=== PATIENT | female | born 1995 | race Caucasian/White ===

== ENCOUNTER 2020-10-28 06:53 | Outpatient (NON) | payer BC, SELFPAY ==
[2020-10-29 13:43] LABS: SARS-CoV-2 RNA PCR Negative
== END 2020-10-28 06:54 ==
PROVIDERS: PCP Pediatrics; Visit Provider Nurse Practitioner Family
DX: Z20.828 Contact with and (suspected) exposure to other viral communicable diseases (principal); R51.9 Headache, unspecified; J02.9 Acute pharyngitis, unspecified
CPT/HCPCS: 87635; C9803; U0003

== ENCOUNTER 2022-03-30 06:57 | Emergency (ER) | payer OTHER, SELFPAY ==
[2022-03-30 07:03] VITALS: BP 118/87; PULSE 123; RESP 18; TEMP 37.3; O2SAT 99
--- NOTE | 2022-03-30 07:20 | ED.NAVMDI ---
HPI - Nausea/Vomiting/Diarrhea General Chief complaint: Nausea/Vomiting/Diarrhea Stated complaint: 18wks preg, N/V/D, fever Time Seen by Provider: 03/30/22 07:13 Source: patient Mode of arrival: ambulatory Limitations: no limitations History of Present Illness HPI Narrative: Patient is a 26-year-old female complaining of I think I got food poisoning , describes symptoms as nausea, vomiting, diarrhea and subjective fever that started last night. Patient states she was at work ate something and when she got home she started to experience the above symptoms. Patient states that her has similar symptoms but just has diarrhea. Patient states that she is 18 weeks , has had care and ultrasound, denies any abdominal pain, vaginal bleeding or discharge. Related Data Allergies Allergy/AdvReac Type Severity Reaction Status Date / Time No Known Allergies Allergy Verified 03/30/22 07:14 Review of Systems Review of Systems: All systems reviewed & are unremarkable except as noted in HPI and below Constitutional: Constitutional: Denies body ache(s), Denies chills, Denies excessive sweating, Denies fatigue, Denies fever(s), Denies headache(s), Denies lethargy, Denies malaise, Denies weakness and Denies weight loss Eyes: Eyes: Denies blurry vision, Denies change in vision and Denies loss of vision ENT: Denies dizziness, Denies ear discharge, Denies headache(s), Denies lip swelling, Denies epistaxis, Denies nasal congestion, Denies neck pain, Denies throat swelling and Denies tongue swelling Cardiovascular: Cardiovascular: Denies chest pain, Denies chest pain at rest, Denies chest pain with activity, Denies diaphoresis, Denies rapid heart rate, Denies edema, Denies irregular heart rhythm, Denies lightheadedness, Denies palpitations, Denies dyspnea and Denies dyspnea on exertion Respiratory: Respiratory: Denies chest congestion, Denies cough, Denies hemoptysis, Denies dyspnea and Denies dyspnea on exertion Gastrointestinal: Gastrointestinal: Denies abdominal pain, Denies melena, Denies hematochezia and Denies hematemesis Musculoskeletal: Musculoskeletal: Denies abnormal gait, Denies deformity, Denies joint swelling, Denies limited range of motion, Denies neck pain and Denies numbness Neurologic: Denies Abnormal speech present, Denies abnormal gait, Denies confusion, Denies dizziness, Denies headache(s), Denies focal weakness, Denies loss of vision, Denies numbness, Denies Other visual disturbances, Denies Sensory deficit (Neuro) and Denies weakness Psychiatric: Psychiatric: Denies confusion, Denies depression, Denies auditory hallucinations, Denies homicidal ideation and Denies suicidal ideation Endocrine: Endocrine: Denies cold intolerance, Denies excessive sweating, Denies fatigue, Denies heat intolerance and Denies palpitations Hematologic/Lymphatic: Hematologic/Lymphatic: Denies easy bleeding and Denies easy bruising Allergic/Immunologic: Allergic/Immunologic: Denies lip swelling, Denies throat swelling and Denies tongue swelling PMFSH Past Medical History Medical History Asthma Encounter for IUD insertion 09/17/19 Mirena insertion 07/03/21 Mirena removal Headache Heartburn HSV-2 infection Nexplanon insertion 2014 Nexplanon removal 05/02/2018 Surgical History Surgical History Gastric bypass status for obesity 07/14/2019 Family History Family History Father Hypertension Heart disease Mother Heart disease pacemaker Grandparent Heart disease paternal grandfather Diabetes mellitus maternal grandmother Congestive heart failure maternal grandmother Lung tumor maternal grandfather Other Diabetes mellitus maternal aunt x2 Exam Const: General: cooperative, healthy appearing, comfortable,
[2022-03-30 07:26] LABS: Basophils Percent Auto 0.2 % (0.2-1.2); Eosinophils Absolute Auto 0.1 K/mm3 (0-0.3); Eosinophils Percent Auto 0.4 % (0-4.4); Hemoglobin 12.4 g/dL (12.0-15.0); Immature Granulocyte Absolute 0.07 K/mm3 (0.00-0.031); Immature Granulocyte Percent A 0.6 % (0-0.5); Lymphocytes Absolute Auto 0.64 K/mm3 (0.9-3.2); Lymphocytes Percent Auto 5.4 % (18.3-44.2); Mean Corpuscular HGB Conc 34.4 g/dl (32-36); Mean Corpuscular Hemoglobin 29.7 pg (26-34); Mean Corpuscular Volume 86.3 fl (80-100); Mean Platelet Volume 10.1 fl (7.4-10.4); Monocytes Absolute Auto 0.5 K/mm3 (0.1-0.6); Monocytes Percent Auto 4.4 % (2.6-8.5); Neutrophils Absolute Auto 10.7 K/mm3 (1.3-6.7); Platelet Count Result 246 k/mm3 (150-375); Red Blood Count 4.17 M/mm3 (4.2-5.4); Red Cell Distribution Width 11.9 % (11.5-14.5)
[2022-03-30] MEDS: SODIUM CHLORIDE 0.9% IV 1,000 ML 999 ML IV CONT (07:26)
[2022-03-30] MEDS: PROMETHAZINE HCL 25 MG/ML AMPUL 12.5 MG IV PUSH (07:26)
[2022-03-30 07:38] LABS: Alanine Aminotransferase 14 U/L (4-35); Albumin Level 3.8 g/dL (3.5-5.1); Alkaline Phosphatase 61 U/L (38-126); Anion Gap 8 mmol/L (8-16); Aspartate Amino Transferase 22 U/L (14-36); Bilirubin,Total 0.5 mg/dL (0.2-1.3); Blood Urea Nitrogen 8 mg/dL (7-17); Calcium 8.4 mg/dL (8.4-10.2); Carbon Dioxide 20 mmol/L (22-30); Chloride 105 mmol/L (98-107); Estimated CRCL calculation 162 ml/min; Estimated Glomerular Filt Rate > 60; Glucose 91 mg/dL (65-110); Lipase 95 U/L (23-300); Potassium 3.4 mmol/L (3.4-5.0); Sodium 133 mmol/L (137-145)
[2022-03-30 08:07] VITALS: BP 109/72; PULSE 88; RESP 14; O2SAT 100
[2022-03-30 09:42] VITALS: BP 109/59; PULSE 76; RESP 18; O2SAT 98
[2022-03-30 10:38] VITALS: BP 103/69; PULSE 71; RESP 18; O2SAT 98
[2022-03-30 11:30] VITALS: BP 107/74; PULSE 80; RESP 16; TEMP 36.8; O2SAT 99
== END 2022-03-30 11:33 | disposition home or self-care (01) ==
PROVIDERS: Emergency Provider Emergency Medicine
DX: O98.812 Other maternal infectious and parasitic diseases complicating pregnancy, second trimester (principal); A05.9 Bacterial foodborne intoxication, unspecified; O99.512 Diseases of the respiratory system complicating pregnancy, second trimester; J45.909 Unspecified asthma, uncomplicated; O99.842 Bariatric surgery status complicating pregnancy, second trimester; Z3A.18 18 weeks gestation of pregnancy
CPT/HCPCS: 36415; 80053; 83690; 85025; 96361; 96374; 99284; J2550; J7030

== ENCOUNTER 2022-07-17 01:18 | Emergency (ER) | payer OTHER, SELFPAY ==
[2022-07-17 01:21] VITALS: BP 132/63; PULSE 136; RESP 20; TEMP 37.6; O2SAT 98
[2022-07-17 02:06] VITALS: PULSE 114; RESP 17; O2SAT 100
--- NOTE | 2022-07-17 02:08 | ED.FEVER ---
HPI - Fever General Chief Complaint: Fever Stated Complaint: Fever Time Seen by Provider: 07/17/22 01:38 History of Present Illness HPI Narrative: 27-year-old female presents emergency room secondary to fever. She began with a fever yesterday. Patient is currently 34 weeks gestation she is a 1 para 0. She has had her COVID vaccination and is scheduled to get a booster soon. She not been around anybody that she knows he had COVID. However she has a lot of nasal congestion and runny nose. A lot of pressure to her head. Denies any cough or any shortness of breath. She been having low-grade fevers and been taking Tylenol for. Denies any abdominal pain. No vomiting or diarrhea. No urinary complaints been noted. She states she is feeling her baby move but not as much in the last day or so but there is still movement. She called OB first and was told secondary to the fact she had a fever not to come to OB but come to the emergency room to be evaluated. Related Data Allergies Allergy/AdvReac Type Severity Reaction Status Date / Time No Known Allergies Allergy Verified 07/17/22 01:24 Review of Systems Review of Systems: CONSTITUTIONAL: Been having fevers but no chills. EYES: Denies visual changes, redness, or discharge. ENT: Having a lot of nasal congestion and rhinorrhea and some postnasal drip. No significant sore throat. No earaches. CARDIOVASCULAR: Denies chest pain, palpitations, or edema. RESPIRATORY: Denies cough or dyspnea. GASTROINTESTINAL: Denies abdominal pain, nausea, vomiting, or diarrhea. GENITOURINARY: Denies dysuria or hematuria. SKIN: Denies rash or itching. MUSCULOSKELETAL: Denies back pain, joint pain, or myalgia. NEUROLOGIC: Denies headache, numbness, or weakness. PSYCHIATRIC: Denies anxiety or depression. [facility] Past Medical History Medical History Asthma Encounter for IUD insertion 09/17/19 Mirena insertion 07/03/21 Mirena removal Headache Heartburn HSV-2 infection Nexplanon insertion 2015 Nexplanon removal 05/02/2018 Surgical History Surgical History Gastric bypass status for obesity 07/14/2019 Family History Family History Father Hypertension Heart disease Mother Heart disease pacemaker Grandparent Heart disease paternal grandfather Diabetes mellitus maternal grandmother Congestive heart failure maternal grandmother Lung tumor maternal grandfather Other Diabetes mellitus maternal aunt x2 Exam Narrative: APPEARANCE: Well appearing, no pain or distress, well-nourished. Head Normocephalic and atraumatic. EYES: PERRLA/EOMI, conjunctivae clear. NOSE: Nasal rhinorrhea EARS:TMS clear with Garcia, with good light reflex. THROAT: Mild postnasal drip no exudates. No erythema to the tonsillar area. NECK: Supple. No adenopathy, no masses. RESPIRATORY: Airway patent, respirations nonlabored. Clear to auscultation bilaterally, no rales, rhonchi, wheezing. CARDIOVASCULAR: Regular rate and rhythm without murmurs, rubs, or gallops. ABDOMINAL: Soft, nontender, nondistended, no hepatosplenomegaly. Gravid uterus noted. heart tones 171. Musculoskeletal: Moves all extremities. Strength/ROM intact, No edema, No calf tenderness. NEURO: Alert. Cranial nerves II through XII intact. Normal gait. Good coordination. Nonfocal examination. SKIN:: Warm, dry. Normal Color PSYCHIATRIC: Normal affect/mood, normal interaction Course Vital Signs Vital signs: Vital Signs Temperature 99.6 F 07/17/22 01:21 Pulse Rate 136 H 07/17/22 01:21 Respiratory Rate 20 07/17/22 01:21 Blood Pressure 132/63 07/17/22 01:21 Pulse Oximetry 98 07/17/22 01:21 Oxygen Delivery Room Air 07/17/22 01:21 Temperature 99.6 F 07/17/22 01:21 Pulse Rate 114 H 07/17/22 02:06 Respiratory
[2022-07-17 02:20] LABS: Appearance Urine Clear (Clear); Bilirubin Urine Negative (Negative); Blood Urine Negative (Negative); Color Urine Yellow (Yellow); Glucose Urine UA Negative (Negative); Ketones Urine 2+ mg/dL (Negative); Leukocyte Esterase Ur Negative LEU/UL (Negative); Nitrate Urine Negative (Negative); Protein Urine Negative (Negative); Specific Grav Ur 1.015 (1.001-1.035); Urobilinogen Urine 0.2 mg/dL (<2.0)
[2022-07-17 02:23] LABS: Add Urine Microscopic? YES; Bacteria Urine Trace /hpf; Mucus Urine Rare /lpf; RBC Urine 0-2 /hpf (0-2); Squamous Epithelial Cell Urine Occasional /hpf (Few); WBC Urine 0-3 /hpf
[2022-07-17 02:49] LABS: SARS-CoV-2 RNA PCR Positive
[2022-07-17 03:17] VITALS: BP 118/83; PULSE 104; RESP 17; TEMP 37.4; O2SAT 99
== END 2022-07-17 03:18 | disposition home or self-care (01) ==
PROVIDERS: Emergency Provider Emergency Medicine; PCP Family Medicine
DX: O98.513 Other viral diseases complicating pregnancy, third trimester (principal); U07.1 COVID-19; O99.513 Diseases of the respiratory system complicating pregnancy, third trimester; J45.909 Unspecified asthma, uncomplicated; O99.843 Bariatric surgery status complicating pregnancy, third trimester; Z3A.34 34 weeks gestation of pregnancy
CPT/HCPCS: 81001; 99283; C9803; U0003; U0005

== ENCOUNTER 2022-08-29 09:32 | Inpatient (IN) | payer OTHER, SELFPAY ==
[2022-08-29] VITALS (110 sets, daily range): BP systolic 79–162; BP diastolic 46–97; PULSE 58–254; RESP 16; TEMP 36.9–37.3; O2SAT 92–100; BMI 33.2
--- NOTE | 2022-08-29 10:58 | LDADM ---
This patient, Joycelyn Mercedes, was admitted to Labor/Delivery/Recovery 105 on 08/29/22 at 09:32. Plans for labor, pain management and were discussed with patient. Patient/family oriented to hospital policies and general routines including ID bracelet, bed and alarms, visiting hours, pain management, procedures, bathroom and other care routines, personal items, smoking policy, room service/diet and guest tray routines, security routines, and visiting hours. Patient/Family are encouraged to report perceived risks to care and to ask questions if they do not understand what they are told or what they should do. See OBIX for further documentation.
[2022-08-29 11:19] LABS: Basophils Percent Auto 0.3 % (0.2-1.2); Eosinophils Absolute Auto 0.1 K/mm3 (0-0.3); Eosinophils Percent Auto 0.6 % (0-4.4); Hematocrit 36.3 % (37.0-47.0); Hemoglobin 12.3 g/dL (12.0-15.0); Immature Granulocyte Percent A 0.6 % (0-0.5); Lymphocytes Absolute Auto 2.23 K/mm3 (0.9-3.2); Mean Corpuscular HGB Conc 33.9 g/dl (32-36); Mean Corpuscular Volume 88.5 fl (80-100); Mean Platelet Volume 11.1 fl (7.4-10.4); Monocytes Absolute Auto 0.8 K/mm3 (0.1-0.6); Neutrophils Absolute Auto 12.7 K/mm3 (1.3-6.7); Neutrophils Percent Auto 79.5 % (45.5-73.1); Platelet Count Result 272 k/mm3 (150-375)
--- NOTE | 2022-08-29 12:25 | WPDOBADMIT ---
Obstetrics - Admit Note Admission Note: record reviewed. No pertinent additions to the history and/or any subsequent changes in the physical findings that are not consistent with the expected course of the were found.pt admitted in labor, SVE /-1, AROM thick meconium fluid, anticipate vaginal delivery Additions to the history and/or subsequent changes in the physical findings follow. None.
--- NOTE | 2022-08-29 13:49 | WPDANESEPP ---
Anes - Eval Pre Procedure Procedure: Labor epidural Date/Time: 08/29/22 13:49 Surgeon: Labor epidural Preop Diagnosis: Abd pain with contractions Pre Op Diagnosis: Labor Patient Data Age: 27 Gender: F Height: 1.73 m Weight: 99 kg Last Vital Signs Temp 99.1 F 08/29/22 12:30 Pulse 64 08/29/22 13:49 BP 116/73 08/29/22 13:49 O2 Del Method Room Air 08/29/22 10:58 Allergies Allergy/AdvReac Type Severity Reaction Status Date / Time No Known Allergies Allergy Verified 08/01/22 15:40 Home Medications Medication Instructions Recorded Confirmed Type aspirin 81 mg tablet 81 mg PO DAILY 08/01/22 08/29/22 History ferrous sulfate 325 mg (65 mg 325 mg PO DAILY 08/01/22 08/29/22 History iron) tablet,delayed release prenat.vits,yno,nbr-byvd-vaoml 1 tablet PO DAILY 08/01/22 08/29/22 History valacyclovir 500 mg tablet 500 mg PO BID #90 tabs 08/27/22 08/29/22 Rx (Valtrex) Laboratory Tests 08/29/22 08/29/22 08/29/22 11:03 11:04 11:04 WBC 16.0 K/mm3 H K/mm3 (4.5-10.0) RBC 4.10 M/mm3 L M/mm3 (4.2-5.4) Hgb 12.3 g/dL g/dL (12.0-15.0) Hct 36.3 % L % (37.0-47.0) MCV 88.5 fl fl (80-100) MCH 30.0 pg pg (26-34) MCHC 33.9 g/dl g/dl (32-36) RDW 13.0 % % (11.5-14.5) Plt Count 272 k/mm3 k/mm3 (150-375) MPV 11.1 fl H fl (7.4-10.4) Immature Gran % (Auto) 0.6 % H % (0-0.5) Neut % (Auto) 79.5 % H % (45.5-73.1) Lymph % (Auto) 14.0 % L % (18.3-44.2) Ray % (Auto) 5.0 % % (2.6-8.5) Eos % (Auto) 0.6 % % (0-4.4) Baso % (Auto) 0.3 % % (0.2-1.2) Lymph # (Auto) 2.23 K/mm3 K/mm3 (0.9-3.2) Ray # (Auto) 0.8 K/mm3 H K/mm3 (0.1-0.6) Eos # (Auto) 0.1 K/mm3 K/mm3 (0-0.3) Baso # (Auto) 0.0 K/mm3 K/mm3 (0.0-0.1) Abs Immat Gran (auto) 0.10 K/mm3 H K/mm3 (0.00-0.031) Absolute Neuts (auto) 12.7 K/mm3 H K/mm3 (1.3-6.7) Absolute Nucleated RBC 0.0 K/mm3 K/mm3 (0.0-0.012) Nucleated RBC % 0.0 % % (0.0-0.2) RPR Pending Blood Type A Positive Antibody Screen Negative Patient hx anesthesia problems: none Family hx anesthesia problems: none Results Review: All pre-operative results and documents have been reviewed as part of the pre-operative evaluation. [facility] Past Medical History Medical History Asthma Encounter for IUD insertion 09/17/19 Mirena insertion 07/03/21 Mirena removal Headache Heartburn HSV (herpes simplex virus) infection HSV-2 infection HTN (hypertension) with goal to be determined Nexplanon insertion 2014 Nexplanon removal 05/02/2018 and not yet delivered Surgical History Surgical History Gastric bypass status for obesity 07/14/2019 Family History Family History Father Hypertension Heart disease Mother Heart disease pacemaker Grandparent Heart disease paternal grandfather Diabetes mellitus maternal grandmother Congestive heart failure maternal grandmother Lung tumor maternal grandfather Other Diabetes mellitus maternal aunt x2 Social History Social History Smoking status: Never smoker Second hand tobacco smoke exposure: No Substance use: never Spiritual care concerns: No Exam Day of Procedure 08/29/22 13:49 Patient weight: obese Airway: Mallampati scale class II
[2022-08-29 15:37] LABS: Rapid Plasma Reagin Non-Reactive (NonReactive)
[2022-08-29] MEDS: LACTATED RINGERS 1,000 ML 125 ML IV CONT ×2 (18:28→20:03)
[2022-08-29] MEDS: PHENYLEPHRINE 1,000 MCG/10 ML SYRINGE 100 MCG IV PUSH (20:35)
[2022-08-29] MEDS: SODIUM CHLORIDE 0.9% IV 300 ML 600 ML I-UTERINE (20:48)
[2022-08-29] MEDS: TERBUTALINE SULFATE 1 MG/ML VIAL 0.25 MG SUB-Q (21:18)
--- NOTE | 2022-08-29 21:31 | PM.IMHP ---
H&P: HPI History of Present Illness Date/Time: 08/29/22 21:31 pt presented in labor and after AROM with meconium fluid was not progressing in labor. Called to bs after terbutaline given for non reassuring heart tracing. pt resting comfortably with epidural and amnioinfusion currently running Chief Complaint: labor Review of Systems Review of Systems: All systems reviewed & are unremarkable except as noted in HPI and below PMFSH Past Medical History Medical History Asthma Encounter for IUD insertion 09/17/19 Mirena insertion 07/03/21 Mirena removal Headache Heartburn HSV (herpes simplex virus) infection HSV-2 infection HTN (hypertension) with goal to be determined Nexplanon insertion 2014 Nexplanon removal 05/02/2018 and not yet delivered Surgical History Surgical History Gastric bypass status for obesity 07/14/2019 Family History Family History Father Hypertension Heart disease Mother Heart disease pacemaker Grandparent Heart disease paternal grandfather Diabetes mellitus maternal grandmother Congestive heart failure maternal grandmother Lung tumor maternal grandfather Other Diabetes mellitus maternal aunt x2 Social History Social History Smoking status: Never smoker Second hand tobacco smoke exposure: No Substance use: never Spiritual care concerns: No Meds Home Medications and Allergies Home Medications Medication Instructions Recorded Confirmed Type aspirin 81 mg tablet 81 mg PO DAILY 08/01/22 08/29/22 History ferrous sulfate 325 mg (65 mg 325 mg PO DAILY 08/01/22 08/29/22 History iron) tablet,delayed release prenat.vits,yon,ybj-tvzy-qdrjr 1 tablet PO DAILY 08/01/22 08/29/22 History valacyclovir 500 mg tablet 500 mg PO BID #90 tabs 08/27/22 08/29/22 Rx (Valtrex) Allergies Allergy/AdvReac Type Severity Reaction Status Date / Time No Known Allergies Allergy Verified 08/01/22 15:40 Vital Signs Vital Signs - 24 hr 08/29/22 10:31 08/29/22 11:01 08/29/22 11:37 Temperature Pulse Rate 58 L 62 61 Blood Pressure 113/66 109/65 118/74 Pulse Oximetry Oxygen Delivery 08/29/22 12:01 08/29/22 10:02 08/29/22 12:31 Temperature 36.9 C Pulse Rate 61 79 Blood Pressure 126/67 123/69 Pulse Oximetry Oxygen Delivery 08/29/22 12:30 08/29/22 13:01 08/29/22 13:49 Temperature 37.3 C Pulse Rate 81 64 Blood Pressure 129/60 116/73 Pulse Oximetry Oxygen Delivery 08/29/22 14:01 08/29/22 14:00 08/29/22 14:31 Temperature 37.3 C Pulse Rate 69 71 Blood Pressure 110/63 110/65 Pulse Oximetry Oxygen Delivery 08/29/22 15:01 08/29/22 16:00 08/29/22 16:02 Temperature 36.9 C Pulse Rate 70 72 Blood Pressure 107/66 120/57 L Pulse Oximetry Oxygen Delivery 08/29/22 16:39 08/29/22 17:01 08/29/22 17:31 Temperature Pulse Rate 74 64 67 Blood Pressure 113/62 115/78 107/50 L Pulse Oximetry Oxygen Delivery 08/29/22 17:30 08/29/22 18:01 08/29/22 18:31 Temperature 36.9 C Pulse Rate 88 62 Blood Pressure 124/71 124/65 Pulse Oximetry Oxygen Delivery 08/29/22 18:59 08/29/22 19:04 08/29/22 19:07 Temperature Pulse Rate 254 H 97 Blood Pressure 162/68 H 128/75 Pulse Oximetry 92 100 Oxygen Delivery 08/29/22 19:08 08/29/22 19:09 08/29/22 19:14 Temperature Pulse Rate 79 77 Blood Pressure 117/74 107/59 L Pulse Oximetry 99 96 Oxygen Delivery 08/29/22 19:16 08/29/22 19:19 08/29/22 19:20 Temperature Pulse Rate 71 65 Blood Pressure 109/52 L 110/46 L Pulse Oximetry 97 98 Oxygen Delivery 08/29/22 19:21 08/29/22 19:22 08/29/22 19:25 Temperature Pulse Rate 76 177 H Blood Pres
[2022-08-30] VITALS (58 sets, daily range): BP systolic 85–128; BP diastolic 40–74; PULSE 62–143; RESP 16–18; TEMP 36.6–38.1; O2SAT 96–100
[2022-08-30] MEDS: OXYTOCIN 30 UNITS/NS 500 ML 30 UNITS/500 ML BAG 999 UNITS IV CONT (02:04)
--- NOTE | 2022-08-30 02:36 | PM.OBPRVD ---
OB - Delivery Note Procedure Delivery date: 08/30/22 Procedure: Intrapartal Events: Chorioamnionitis (suspected) Induction method: AROM Delivery monitor: Internal FHT and Internal Uterine Route of delivery: Laceration Description: Perineal - 1st Degree and Labial (left) Delivery repair: vicryl Specimen: Yes Quantitative Blood Loss (ml): 310 Anesthesia type: Local Disposition: Floor Complications: oozing from suture placement, vaginal packing placed. Narrative: mother and baby stable and doing skin to skin Baby Date of : 08/30/22 Time of : 02:00 Weeks of gestation at delivery: 40 Infant gender: Female Weight (pounds): 6 Weight (ounces): 2 presentation: vertex position: Right Occiput Anterior Placenta delivery description: Spontaneous Cord Vessel Description: 3 Vessels, Clamped/Cut and Delayed Cord Clamping score one minute: 9 score five minutes: 9
[2022-08-30] MEDS: OXYTOCIN 30 UNITS/NS 500 ML 30 UNITS/500 ML BAG 125 UNITS IV CONT (02:48)
[2022-08-30] MEDS: LIDOCAINE HCL 1% PF 30 ML VIAL (02:48)
[2022-08-30] MEDS: CLINDAMYCIN 900 MG/D5W 50 ML 900 MG/50 ML PIGGYBACK 50 MG IVPB (04:17)
[2022-08-30] MEDS: BENZOCAINE 20% AER SPR (*SP) 56 GM CAN 1 SPRAY TOPICAL (05:26)
[2022-08-30] MEDS: WITCH HAZEL 40 PADS 1 PAD TOPICAL (05:26)
[2022-08-30] MEDS: ACETAMINOPHEN 325 MG TABLET 650 MG PO ×2 (05:44→15:33)
[2022-08-30] MEDS: GENTAMICIN SULFATE INJ 390 MG in DEXTROSE 5% 100 ML 109.75 MG IVPB (05:48)
[2022-08-30] MEDS: MULTIVIT/MIN/PREN/FOL AC/IRON TABLET 1 TAB PO (09:29)
--- NOTE | 2022-08-30 15:37 | OBPPTRN ---
1250-Patient transferred to post room #286 via wheelchair. Support person present. Oriented to unit, room, information board, rooming in, admission packet and security measures. Patient verbalizes understanding.
[2022-08-30] MEDS: HYDROcodone/acetaminophen (*CRX) 5-325 MG TABLET 1 TAB PO (21:42)
[2022-08-31] VITALS: BP 111/69; PULSE 67; RESP 18; TEMP 36.8
[2022-08-31 05:32] LABS: Hematocrit 29.5 % (37.0-47.0); Hemoglobin 9.6 g/dL (12.0-15.0)
--- NOTE | 2022-08-31 07:35 | PM.OBPNVD ---
OB - PN: Subj Subjective Date/time seen: 08/31/22 07:35 s/p vaginal delivery day 1 OB - PN: Obj Data Labs CBC & Chem 7: 08/31/22 05:00 Labs: Laboratory Results - last 24 hr 08/31/22 05:00 Hgb 9.6 L Hct 29.5 L OB - PN A/P Plan day: 1 Plan: routine care and discharge home Time Spent With Patient Time: Total time spent is greater than 50% in coordination of care (as documented) at patient's floor/unit and/or counseling patient: Review of Systems Review of Systems: All systems reviewed & are unremarkable except as noted in HPI and below Exam Const: General: cooperative, healthy appearing and comfortable
--- NOTE | 2022-08-31 07:37 | PM.OBDSVD ---
DS: Admitting Diagnosis Discharge Date 08/31/2022 Admitting Diagnosis labor OB - DS: Summary OB Procedures : None OB Procedures Intrapartum: Spontaneous Vag Delivery OB Procedures: : None Time Spent with Patient Time attestation: Total time spent providing and/or coordinating discharge services: DS: Data Data Completed and Pending Pending studies at discharge: Pending at discharge 08/30/22 07:51 Surgical [PTH] Routine Labs on day of discharge: Labs from last 24 hours 08/31/22 05:00 Hgb 9.6 L Hct 29.5 L Discharge Plan Discharge Attending physician on discharge: Sarah Momin Discharging Clinician: Azul Lewis Patient Disposition: Home, Self-Care Activity: pelvic rest Diet: regular Patient Instructions: Antibiotic Form Stand Alone Forms: General Discharge Information Follow-up/Referrals: Azul Lewis, SALVADORM [Certified Nurse Process Plant Operator] - 4 Weeks Discharge Medications: New acetaminophen [Mapap (acetaminophen)] 325 mg Tablet 650 mg PO Q6H PRN (Reason: Mild Pain (1-3) Or Headache) Qty: 60 0RF Continued ferrous sulfate 325 mg (65 mg iron) Tablet,Delayed Release (Dr/Ec) 325 mg PO DAILY #2 Tablet 1 tablet PO DAILY valacyclovir [Valtrex] 500 mg tablet 500 mg PO BID Qty: 90 0RF Discontinued Low-Dose Aspirin 81 mg Tablet 81 mg PO DAILY Date of admission: 08/29/22 09:32 Primary Care Provider: Teto,Cari Eddy Admitting Provider: Thu Myers Attending physician on admission: Thu Myers Condition: Stable
[2022-08-31 08:00] VITALS: PULSE 67; RESP 18; O2SAT 100
[2022-08-31] MEDS: DOCUSATE SODIUM 100 MG CAPSULE PO (08:02)
[2022-08-31] MEDS: HYDROcodone/acetaminophen (*CRX) 5-325 MG TABLET 1 TAB PO (08:02)
[2022-08-31] MEDS: MULTIVIT/MIN/PREN/FOL AC/IRON TABLET 1 TAB PO (08:03)
[2022-08-31] MEDS: POLYSACCHARIDE IRON COMPLEX 150 MG CAPSULE PO (08:03)
[2022-08-31 08:10] VITALS: BP 121/83; PULSE 68; RESP 18; TEMP 37.3; O2SAT 98
--- NOTE | 2022-08-31 08:58 | WPDANLDPN2 ---
Anes-Prog Note L&D Date/Time: 08/31/22 08:58 Comfortable throughout: labor and delivery Neuraxial method: epidural Epidural/Spinal procedure site: clean & non-tender Neuro status: Neuro function grossly intact. Cardiovascular status: normal Respiratory status: normal Airway patency: baseline Mental status: baseline Post-Op hydration status: normal Vital Signs: Last Vital Signs Temp 36.8 C 08/31/22 00:00 Pulse 67 08/31/22 00:00 Resp 18 08/31/22 00:00 BP 111/69 08/31/22 00:00 Pulse Ox 100 08/30/22 15:30 O2 Del Method Room Air 08/31/22 00:00 Pain score (VAS): 1/10 I/O: Intake & Output 08/30/22 08/31/22 08/31/22 23:59 07:59 15:59 Intake Total 240 Balance 240 Post-procedural complaints: none Patient feedback: Patient satisfied with anesthetic care.
--- NOTE | 2022-08-31 13:49 | PC.NURSE ---
Patient viewed the discharge video Mother & Baby Care, The First Two Weeks . Patient was given the opportunity and encouraged to ask questions. Patient verbalized understanding of information shared and has been given the mother/baby guide for home reference.
[2022-09-01 09:56] VITALS: BP 110/66; PULSE 73; RESP 20; TEMP 36.9; O2SAT 99
== END 2022-08-31 13:56 | disposition home or self-care (01) | DRG 805 ==
LOC: ANHLDR 10:12 → ANHOBPP 08-30 06:44 → ANHOB2 08-30 12:58
PROVIDERS: Advanced Practice Midwife; Admitting Provider Obstetrics & Gynecology; PCP Family Medicine; Visit Provider Obstetrics & Gynecology
DX: O75.2 Pyrexia during labor, not elsewhere classified (principal); O41.1230 Chorioamnionitis, third trimester, not applicable or unspecified; Z37.0 Single live birth; O98.52 Other viral diseases complicating childbirth; O77.0 Labor and delivery complicated by meconium in amniotic fluid; O76 Abnormality in fetal heart rate and rhythm complicating labor and delivery; O70.0 First degree perineal laceration during delivery; Z3A.40 40 weeks gestation of pregnancy; O99.52 Diseases of the respiratory system complicating childbirth; J45.909 Unspecified asthma, uncomplicated; B00.9 Herpesviral infection, unspecified; O99.844 Bariatric surgery status complicating childbirth; Z23 Encounter for immunization
CPT/HCPCS: 36415; 85014; 85018; 85025; 86592; 86850; 86900; 86901; 88307; 90471; 90686; A9270; G0008; J1580; J2370; J2590; J2795; J3105; J7030; J7120